=== PATIENT | female | born 1985 | race Caucasian/White ===

== ENCOUNTER 2018-06-15 17:32 | Emergency (ER) | payer OTHER ==
[~2018-06-15] VITALS: Ht 160 cm; Wt 84.8 kg
[2018-06-15 17:50] VITALS: Ht 160 cm; Wt 84.8 kg
[2018-06-15 19:02] LABS: BASOPHIL % 0.1 % (0-2); PLATELET COUNT 341 x10^3mcL (130-400)
[2018-06-15 19:05] LABS: CALCIUM 8.3 mg/dL (8.5-10.1); CARBON DIOXIDE 29.2 mmol/L (21-32); CHLORIDE SERUM 103 mmol/L (98-107); CREATININE SERUM 0.6 mg/dL (0.6-1.0); GFR1 > 60 mL/min; GLUCOSE SERUM 88 mg/dL (74-106); POTASSIUM SERUM 3.5 mmol/L (3.5-5.1); SODIUM SERUM 140 mmol/L (136-145)
[2018-06-15 19:10] LABS: ALBUMIN 4.1 g/dL (3.4-5.0); ALKALINE PHOSPHATASE 237 U/L (46-116); ALT/SGPT 61 U/L (14-59); AST/SGOT 50 U/L (15-37); BILIRUBIN TOTAL 0.57 mg/dL (0.20-1.00)
[2018-06-15 19:11] LABS: rbc morphology (normal/abnorm) ABNORMAL (NORMAL)
[2018-06-15 19:12] LABS: ovalocyte/elliptocyte 1+; tear drop cell (dacryocyte) 1+
[2018-06-15 19:13] LABS: schistocyte (helmet cell) 1+
[2018-06-15 23:23] VITALS: BP 106/76
== END 2018-06-15 23:23 | disposition home or self-care (01) ==
LOC: ED 17:32
PROVIDERS: Emergency Medicine
DX: B34.9 Viral infection, unspecified (principal); R10.9 Unspecified abdominal pain; R51 Headache; D64.9 Anemia, unspecified
CPT/HCPCS: 87804; J1885; J2270; J2405

== ENCOUNTER 2020-09-08 13:00 | Emergency (ER) | payer OTHER ==
[~2020-09-08] VITALS: Ht 261.6 cm; Wt 81.6 kg
[2020-09-08 13:03] VITALS: Ht 261.6 cm; Wt 81.6 kg
[2020-09-08 15:07] LABS: PLATELET COUNT 386 x10^3mcL (179-408)
[2020-09-08 15:20] LABS: CALCIUM 8.8 mg/dL (8.5-10.1); CARBON DIOXIDE 29.4 mmol/L (21-32); CHLORIDE SERUM 104 mmol/L (98-107); CREATININE SERUM 0.5 mg/dL (0.6-1.0); GFR1 > 60 mL/min; GLUCOSE SERUM 74 mg/dL (74-106); POTASSIUM SERUM 3.5 mmol/L (3.5-5.1); SODIUM SERUM 141 mmol/L (136-145)
[2020-09-08 15:23] LABS: RED CELL DISTRIBUTION WIDTH 18.5 % (12.3-17.7)
[2020-09-08 15:25] LABS: ALBUMIN 3.9 g/dL (3.4-5.0); ALKALINE PHOSPHATASE 221 U/L (46-116); ALT/SGPT 92 U/L (14-59); AST/SGOT 44 U/L (15-37); BILIRUBIN TOTAL 0.4 mg/dL (0.20-1.00); C REACTIVE PROTEIN 2.6 mg/dL (<=0.9)
[2020-09-08 15:40] LABS: TOTAL PROTEIN, SERUM 8.5 g/dL (6.4-8.2)
[2020-09-08 17:18] VITALS: BP 134/76
== END 2020-09-08 17:18 | disposition home or self-care (01) ==
LOC: ED 13:00
PROVIDERS: Emergency Medicine
DX: B34.9 Viral infection, unspecified (principal); Z20.828 Contact with and (suspected) exposure to other viral communicable diseases
CPT/HCPCS: 86308